=== PATIENT | female | born 1995 | race Caucasian/White ===

== ENCOUNTER 2020-04-23 16:06 | Emergency (ER) | payer OTHER, SELFPAY ==
[2020-04-23 16:30] VITALS: BP 121/71; PULSE 60; RESP 16; TEMP 37.4; O2SAT 98; BMI 26.1
[2020-04-23] MEDS: HYDROCODONE/ACET 5/325 PREPACK 1 BOTTLE MISC (19:25)
[2020-04-23] MEDS: BACITRACIN OINT 0.9 GM PCKT 2 APPLIC TOP (19:26)
[2020-04-23] MEDS: predniSONE 20 MG TABLET 60 MG PO (19:26)
--- NOTE | 2020-04-23 20:33 | ED.BURNSMOKE ---
HPI - Burn/Smoke Inhalation <NIKO Peters - Last Filed: 04/23/20 20:55> General Chief complaint: Burn/Smoke Inhalation Stated complaint: Chemical Burn or Allergic Reaction On Hands 5 Wks Time Seen by Provider: 04/23/20 17:49 Source: patient Mode of arrival: Ambulatory Limitations: no limitations History of Present Illness HPI Narrative: The patient is a 24-year-old female nonsmoker with no pertinent medical history presents with a chief complaint of a rash. She has had this rash for the past 5 weeks. 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 She states that the rash is on the backs of her hands, does not extend anywhere else. She denies any fevers nausea vomiting diarrhea or signs of systemic illness. She states she has been on to steroid tapers in the gets worse after she stops them. She has not taken anything to feel better today. She is using a lotion to help keep her hands hydrated as well as aloe gel. She denies any drainage. She states it is very itchy and painful and she is having a very difficult time sleeping. 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 She has tried scuba gloves taped around her hands but found that to be very hot and itchy and make it worse. She has not seen a pantry steward/stewardess. Related Data Previous Rx's Medication Instructions Recorded hydroxyzine HCl 50 mg PO TID PRN #14 tab 04/23/20 prednisone 40 mg PO DAILY 4 Days #8 tab 04/23/20 Allergies Allergy/AdvReac Type Severity Reaction Status Date / Time No Known Drug Allergies Allergy Verified 04/23/20 17:49 Review of Systems <NIKO Peters - Last Filed: 04/23/20 20:55> Review of Systems Narrative: GENERAL: Denies chills, fatigue, malaise, fever, sweats. HEENT: Denies sinus pain, ear pain, sore throat, difficulty swallowing, dizziness. RESPIRATORY: Denies dyspnea, cough, wheezing, hemoptysis, sputum. CARDIOVASCULAR: Denies chest pain, palpitations, orthopnea, edema, GASTROINTESTINAL: Denies nausea, vomiting, abdominal pain, diarrhea, constipation, melena. : Denies dysuria, frequency, incontinence, hematuria, urinary retention. MUSCULOSKELETAL: denies weakness, joint pain, or bony pain SKIN: See HPI NEUROLOGIC: Denies weakness, headache, numbness, change in speech, confusion, seizures, incoordination. PSYCHIATRIC: No concerning psychosocial issues. 12 point review of systems is negative except for those stated above Patient History <Antonia MckeonRUBY - Last Filed: 04/23/20 20:55> Social History Smoking Status: Never smoker Smoking Status: Never smoker alcohol intake frequency: a few times a week Alcohol type: beer Substance Use Type: does not use Exam <Antonia MckeonRUBY - Last Filed: 04/23/20 20:55> Narrative Exam Narrative: GENERAL: This is a well-nourished, well-developed patient, no acute distress HEAD: Atraumatic. Normocephalic. No temporal or scalp tenderness. EYES: Pupils equal round and reactive. Extraocular motions intact. No scleral icterus. No injection or drainage. ENT: Nose without bleeding, purulent drainage or septal hematoma. Wearing a. Airway patent. NECK: Trachea midline. No JVD or lymphadenopathy. Supple, nontender, no meningeal signs. CARDIOVASCULAR: Regular rate and rhythm RESPIRATORY: No cough. No increased respiratory effort. No accessory muscle use. EXTREMITIES: See skin exam. Bilateral radial pulses intact. Capillary refill less than 2 seconds all fingers bilateral hands NEURO: AOx3. SKIN: Has rash noted on dorsum of bilateral hands. Dry, erythematous patches, multiple scratch schumacher noted bilateral hands 1-2 mm pustules noted. No obvious drainage. No rash in between fingers. No palmar rash noted. Initial Vital Signs Initial Vital Signs: Vital Signs Temperature 99.3 F 04/23/20 16:30 Pulse Rate 60 04/23/20 16:30 Respiratory Rate 16 04/23/20 16:30 Blood Pressure 121/71 04/23/20 16:30 Pulse Oximetry 98 04/23/20 16:30 <Cam Veloz DO - Last Filed: 04/24/20 01:14> Initial Vital Signs Initial Vital Signs: Vital Signs Temperature 99.3 F 04/23/20 16:30 Pulse Rate 60 04/23/20 16:30 Respiratory Rate 16 04/23/20 16:30 Blood Pressure 121/71 04/23/20 16:30 Pulse Oximetry 98 04/23/20 16:30 Course <NIKO Peters - Last Filed: 04/23/20 20:55> Orders Ordered: Discontinued Medications Hydrocodone Bitart/Acetaminophen (Vicodin 5/325 Prepack) 1 bottle MISC SEEINSTR ONE Stop: 04/23/20 18:56 Last Admin: 04/23/20 19:25 Dose: 1 bottle Documented by: MELISSA Bacitracin (Bacitracin) 2 applic TOP NOW ONE Stop: 04/23/20 18:50 Last Admin: 04/23/20 19:26 Dose: 2 applic Documented by: MELISSA Prednisone (Deltasone) 60 mg PO NOW ONE Stop: 04/23/20 18:56 Last Admin: 04/23/20 19:26 Dose: 60 mg Documented by: MELISSA Vital Signs Vital signs: Vital Signs - 8 hr 04/23/20 16:30 Temperature 99.3 F Pulse Rate 60 Respiratory Rate 16 Blood Pressure 121/71 Pulse Oximetry 98 <Cam Veloz DO - Last Filed: 04/24/20 01:14> Orders Ordered: Discontinued Medications Hydrocodone Bitart/Acetaminophen (Vicodin 5/325 Prepack) 1 bottle MISC SEEINSTR ONE Stop: 04/23/20 18:56 Last Admin: 04/23/20 19:25 Dose: 1 bottle Documented by: MELISSA Bacitracin (Bacitracin) 2 applic TOP NOW ONE Stop: 04/23/20 18:50 Last Admin: 04/23/20 19:26 Dose: 2 applic Documented by: MELISSA Prednisone (Deltasone) 60 mg PO NOW ONE Stop: 04/23/20 18:56 Last Admin: 04/23/20 19:26 Dose: 60 mg Documented by: MELISSA Vital Signs Vital signs: Vital Signs - 8 hr 04/23/20 16:30 Temperature 99.3 F Pulse Rate 60 Respiratory Rate 16 Blood Pressure 121/71 Pulse Oximetry 98 MDM - Burn/Smoke Inhalation <NIKO Peters - Last Filed: 04/23/20 20:55> MDM Narrative Medical decision making narrative: The patient is a 24-year-old female nonsmoker with history of a rash on the back of both of her hands who presents with a chief complaint of exacerbation. She has been on p.o. steroids multiple times, she states that she has had this rash for 5 weeks. Upon further investigation, the patient has been using a high water lotion to help hydrate her hand, has been kayaking in the ocean water, and at times is using scuba gloves taped around her hands to avoid the water. This relates with very hot environment. I feel as though these are exacerbating or rashes. I did place her back on a steroid burst, applied bacitracin or hands, discussed at length using Aquaphor out of the tub to help keep her hydrated. I discussed not submerging her hands into dirty water, keeping them hydrated and follow up with primary care provider. She may benefit from referral to a pantry steward/stewardess or gin inspector at this point time. I did give her a take-home pack of Grady at this time, did send in a prescription of Vistaril with strict instructions to not combine sedating agents not combine with alcohol etcetera. Patient has no questions or concerns upon discharge and states understanding of return precautions as well as follow-up care. Discharge Plan Departure Patient Disposition: Home Clinical Impression: Dermatitis Discharge Date/Time: 04/23/20 19:59 Instructions: DI for Contact Dermatitis, DI for Rash Activity Restrictions/Additional Instructions: Thank you for trusting us with your care today I sent 2 prescriptions to [facility] on [place]. This includes a burst of prednisone as well as hydroxyzine for itching. Do not combine the hydroxyzine with Benadryl. I have given you a take-home pack of a narcotic for pain. Be aware that this can be constipating and sedating. I encouraged taking with a stool softener, pushing fluids and fiber. Do not take and drive, operate heavy machinery, etc. Do not combine it with any other sedating substances such as alcohol. The combination of narcotics and alcohol and/or other sedatives can be lethal. As discussed, please follow-up with primary care provider in the next 48-72 hours. You may benefit from a dermatology and/or gin inspector referral. In the meantime, please do not appear hands and dirty water. This includes [place] water, ocean water as this can increase her chance of infection. I suggest using Aquaphor that you have to scoop out of the tub to help keep the backs of your hands moisturized. Please do not keep your hands in moist hot environments as this can make itching worse. Please monitor for fever, extending redness or purulent drainage or any other signs of infection Please come back to emergency department for any acute concerns I have given you a work note for few days of light duty Prescriptions: New prednisone 20 mg tablet 40 mg PO DAILY 4 Days Qty: 8 RF: 0 hydroxyzine HCl 50 mg tablet 50 mg PO TID PRN (Reason: itch) Qty: 14 RF: 0 Referrals: Phan Kauffman MD [Physician] - Stand Alone Forms: Work Release Note <Cam Veloz DO - Last Filed: 04/24/20 01:14> Cosign ED Attending Cosignature Attestation: I was immediately available in the department for consultation. This documentation has been reviewed and I agree with assessment and plan. Supervised by Cam Veloz DO
== END 2020-04-23 19:59 | disposition home or self-care (01) ==
PROVIDERS: Emergency Provider Nurse Practitioner Family
DX: L30.9 Dermatitis, unspecified (principal)
CPT/HCPCS: 99283